=== PATIENT | male | born 1940 | race Caucasian/White ===

== ENCOUNTER 2019-01-20 12:30 | Inpatient (IN) | payer OTHER ==
[~2019-01-20] VITALS: Ht 180.3 cm; Wt 85.7 kg
[~2019-01-20 12:30] MED LIST: ASPIR 8181 MG PO; COMBIVENT INH; DOXYCYCLINE 10100 MG PO; GLUCOTROL5 MG PO; METFORMIN HCL500 MG PO; PREDNISONE 10 M10 MG PO; SINGULAIR 10 MG10 M1 PO; SYMBICORT160 MCG/4. INH; VENTOLIN HFA 1818 GM INH; XALATAN2.5 ML OPHTHALMIC
[2019-01-20 15:12] LABS: BASOPHILS 0.9 % (0.0-2.0); EOSINOPHILS 3.7 % (0.0-3.0); HEMATOCRIT 39.6 % (42.0-52.0); HEMOGLOBIN 13.1 gm/dL (14.0-18.0); LYMPHOCYTES 20.2 % (24.0-44.0); MCHC 33.2 g/dL (28.0-37.0); MCV 90.4 fL (80.0-100.0); MONOCYTES 10.7 % (1.0-8.0); PLATELET COUNT 244 thou/uL (150-400); POLYS 64.5 % (36.0-66.0); RBC 4.37 mil/uL (4.50-6.00); WBC 7.7 thou/uL (4.0-11.0)
[2019-01-20 15:25] LABS: PROTIME 10.6 Seconds (9.3-11.4)
[2019-01-20 15:35] LABS: CALCIUM 9.8 mg/dL (8.5-10.1); CREATININE 1.1 mg/dL (0.7-1.3); POTASSIUM 4.8 mmol/L (3.5-5.1)
[2019-01-20 15:40] LABS: ALBUMIN 3.5 g/dL (3.4-5.0); TOTAL BILIRUBIN 0.4 mg/dL (<0.1-1.0); TOTAL PROTEIN 7.7 g/dL (6.4-8.2)
--- NOTE | 2019-01-20 15:43 | NUR ---
PT ARRIVED TO UNIT APPROX 1445 A DIRECT ADMIT FROM [facility]. PT WENT FOR CATH PROVEDURE TO DAY AT [facility] WHERE THEY FOUND THE PT NEEDED CABG. PT SENT HERE FOR CABG WHICH IS PROJECTED TO BE ON WEDNESDAY, THE . KATHIE ROBERTO AT PT BEDSIDE UPON ARRIVAL, ECHO CURRENTLY AT THE BEDSIDE THEN PT SCHEDULED TO GO FOR US AND XRAY AMONG OTHER PRE-OP TESTING. UNABLE TO DO ADMISSION AT THIS TIME. PLACED PT ON MEAT INSPECTOR AND IN PT GOWN. WILL RETURN TO COMPLETE ADMISSION WHEN PT RETURNS TO ROOM. PT IS ACCOMPANIED BY AND FAMILY WHO ARE CURRENTLY IN VISITOR WAITING ROOM WHILE PT HAS TESTING DONE. WILL UPDATE NEEDED AND WILL CONTINUE TO MONITOR.
[2019-01-20 15:55] VITALS: BP 135/71
[2019-01-20] MEDS ORDERED: BYSTOLIC 5 MG5 M1 PO (17:38)
--- NOTE | 2019-01-20 18:35 | 2DMMODE ---
[place] [address] 2 D/M-MODE ECHOCARDIOGRAM Name: MACARIO KINNEY Room #: 200-I ADM IN [facility].#: [id number] ������������� Admission: 01/20/19 ������������� Attend Phys: Ayden Torres MD Discharge: ��� ������������� ��� Date of : 42 Date of Service: 01/20/19 1834 �� Report #: [id number] �������� ��������������������������������������������[id number] THIS REPORT FOR: //name// APPROVED REPORT Study performed: 01/20/2019 14:53:03 EXAM: Comprehensive 2D, Doppler, and color-flow Echocardiogram Patient Location: Bedside Room #: 200 Status: routine BSA: 2.04 HR: 75 bpm Rhythm: NSR Other Information Study Quality: Fair/low parasternals/No apical window. Technically limited study due to COPD. Indications Pre-Op CABG. 2D Dimensions IVSd: 8.33 (7-11mm) LVOT Diam: 22.04 (18-24mm) LVDd: 54.06 mm PWd: 8.63 (7-11mm) LVDs: 46.06 (25-40mm) Aortic Root: 38.39 mm Aortic Valve AoV Peak [place].: 1.00 m/s AO Peak Gr.: 4.03 mmHg LVOT Max P.95 mmHg LVOT Max V: 0.70 m/s ANNAMARIE Vmax: 2.65 cm2 Mitral Valve E/A Ratio: 0.7 MV Decel. Time: 170.73 ms MV E Max [place].: 0.33 m/s MV A [place].: 0.46 m/s MV PHT: 49.51 ms Pulmonary Valve PV Peak [place].: 1.11 m/s PV Peak Gr.: 4.96 mmHg [facility] [place] [address] [place] [address] 2 D/M-MODE ECHOCARDIOGRAM Name: MACARIO KINNEY Room #: 200-I ADM IN [facility]#: [id number] ������������� Admission: 01/20/19 ������������� Attend Phys: Ayden Torres MD Discharge: ��� ������������� ��� Date of : 42 Date of Service: 01/20/19 1834 �� Report #: [id number] �������� ��������������������������������������������[id number] Tricuspid Valve TR Peak [place].: 2.79 m/s RAP Estimate: 10.00 mmHg TR Peak Gr.: 31.15 mmHg PA Pressure: 41.00 mmHg Left Ventricle The left ventricle is normal size. mild inferior wall hypokinesis There is normal left ventricular wall thickness. Left ventricular systolic function is mildly decreased. LVEF is 45-50%. This study is not technically sufficient to allow evaluation of the LV diastolic function. Right Ventricle The right ventricle is normal size. The right ventricular systolic function is normal. Atria The left atrium size is normal. The right atrium size is normal. Aortic Valve The Aortic valve is mildly sclerotic. No aortic regurgitation is present. There is no aortic valvular stenosis. Mitral Valve The mitral valve is normal in structure. Trace mitral regurgitation. No evidence of mitral valve stenosis. Tricuspid Valve The tricuspid valve is normal in structure. Mild to moderate tricuspid regurgitation. Estimated PAP is 40mmHg. Pulmonic Valve The pulmonary valve is normal in structure. There is no pulmonic valvular regurgitation. Great Vessels Aortic root is borderline dilated. Ascending aorta is not well visualized. IVC is dilated and collapses 50% with inspiration. Pericardium There is no pericardial effusion. <Conclusion> [facility] [address] [place] [address] 2 D/M-MODE ECHOCARDIOGRAM Name: MACARIO KINNEY Room #: 200-I ADM IN .R.#: [id number] ������������� Admission: 01/20/19 ������������� Attend Phys: Ayden Torres MD Discharge: ��� ������������� ��� Date of : 42 Date of Service: 01/20/191833 �� Report #: [id number] �������� ��������������������������������������������[id number] mild inferior wall hypokinesis LVEF is 45-50%. The Aortic valve is mildly sclerotic. Mild to moderate tricuspid regurgitation. Estimated PAP is 40mmHg ��������������������������������������������� <ELECTRONICALLY SIGNED> ���������������������������������������� By: Jordan Farley MD, [facility] ��������������������������������������������� 01/20/191833 33 33 Jordan Farley MD, FACC /INF
[2019-01-20 20:00] VITALS: BP 150/71
[2019-01-21] VITALS (24 sets, daily range): BP systolic 87–208; BP diastolic 43–93
[2019-01-21 05:06] LABS: HEMOGLOBIN 12.7 gm/dL (14.0-18.0); MCH 30.3 pg (26.0-34.0); MCHC 33.5 g/dL (28.0-37.0); MCV 90.5 fL (80.0-100.0); RBC 4.21 mil/uL (4.50-6.00); RDW 13.9 % (10.5-14.5); WBC 8.4 thou/uL (4.0-11.0)
[2019-01-21 05:23] LABS: CALCIUM 9.2 mg/dL (8.5-10.1); POTASSIUM 4.2 mmol/L (3.5-5.1)
--- NOTE | 2019-01-21 07:50 | NUR ---
ASSUME CARE 1900. PT/VITALS STABLE. TOLERATES ACTIVITY MODERATELY. NOTED WHEEZING WITH SOME LABORED BREATHING AT REST. DENIES ANY PAIN. COOPERATIVE MOST OFTEN. PT IS PLEASANT AND APPROPRIATE. ASSESSMENT CHARTED. PROGRESSING SLOWLY WITH POC. RIGHT RADIAL ACCESS CDI. PT NEEDS MORE ENCOURAGEMENT TO AGREE TO CABG PREP PROCEDURES. PT NEEDS MOREENCOURAGEMENT TOWARDS DOING THE CABG AND NEEDS MORE EDUCATION ON THE PROCEDUR. WILL CONTINUE TO MONITOR AND FOLLOW WITH POC.
[2019-01-21 09:22] LABS: BE(vivo) -4.8 mmol/L (-2 to +3); HCO3 23.7 mmol/L (22.0-26.0); PCO2 58.2 mmHg (35.0-45.0); PO2 88.5 mmHg (80.0-100.0); pH 7.227 (7.360-7.450); sO2 94.9 % (92.0-98.0)
[2019-01-21 10:20] LABS: URINE BILIRUBIN NEGATIVE (Negative); URINE BLOOD 3+ (Negative); URINE CLARITY SL CLOUDY; URINE COLOR YELLOW; URINE GLUCOSE-RANDOM* NEGATIVE (Negative); URINE KETONES NEGATIVE (Negative); URINE PROTEIN (DIPSTICK) 2+ (Negative); URINE SPECIFIC GRAVITY 1.015 (1.005-1.035); URINE UROBILINOGEN 0.2 E.U./dl (0.2-1.0)
[2019-01-21 10:25] LABS: URINE LEUKOCYTES-REFLEX 3+ (Negative); URINE NITRITE-REFLEX POSITIVE (Negative)
--- NOTE | 2019-01-21 10:39 | NUR ---
ASSUME CARE AT SHIFT CHANGE, PATIENT IS DROWSY AND RESPONDING TO PAIN STEMULI AND BREATHING SHALLOW AT 28-30/MIN. DR DUFFY NOTIFIED. PIPAP PLACED BY RT, ABG DRAWN AND BERTRAND PLACED. AND WILL CONTINUE TO MONITOR.
[2019-01-21 10:41] LABS: BACTERIA-REFLEX 1-9 Few /HPF (None Seen); CASTS None Seen /LPF (None Seen); CRYSTALS None Seen /LPF (None Seen); SQUAMOUS 0-3 Few /LPF (0-3); URINE RBC >20 Many /HPF (0-2); URINE WBC-REFLEX >25 Many /HPF (0-5)
[2019-01-21 10:56] LABS: BE(vivo) -2.2 mmol/L (-2 to +3); HCO3 24.7 mmol/L (22.0-26.0); PCO2 50.6 mmHg (35.0-45.0); PO2 159.4 mmHg (80.0-100.0); pH 7.306 (7.360-7.450); sO2 98.9 % (92.0-98.0)
--- NOTE | 2019-01-21 11:03 | EKG ---
[place] [address] [facility] [place] [address] ELECTROCARDIOGRAM REPORT Name: MACARIO KINNEY Room #: 200-I ADM IN M.R.#: [id number] ������������������ Admission: 01/20/19 ������������������ Attend Phys: Ayden Torres MD Discharge: ������������������ Date of : 42 Report #: [id number] ����������������������������������������������������������������� [id number] THIS REPORT FOR: //name// [facility] Test Date: 2019-01-21 Test Time: 08:59:25 Pat Name: MACARIO KINNEY Department: Room: 200 I Gender: M Lien Searcher: FAUSTO : 1940 Requested By: Max Salter Order Number: [id number] MD: Carter Cristina Measurements Intervals [place] Rate: 103 P: 69 CT: 143 QRS: 52 QRSD: 87 T: 84 QT: 332 QTc: 435 Interpretive Statements Sinus tachycardia Ventricular premature complex Nonspecific ST segment abnormality No previous ECG available for comparison Electronically Signed On 01-21-2019 11:03:29 CDT by Carter Cristina [email or web address] ��������������������������������������������� <ELECTRONICALLY SIGNED> ���������������������������������������� By: Carter Cristina MD, [facility] ��������������������������������������������� 01/21/19 1103 [id number] Carter Cristina MD, FACC /EPI
[2019-01-21 12:08] LABS: GLYCOHEMOGLOBIN (HGB A1C) 6.9 % (4.8-5.6)
--- NOTE | 2019-01-21 19:53 | NUR ---
1125-RECEIVED PT FRO CCU VIA BED.PT ARRIVED ON BIPAP.--VW 1215-PT WOULD NOT KEEP BIPAP MASK ON,PULLING CONNECTIONS APART.WRIST RESTRAINTS APPLIED. & SON IN,UPDATED ON POC.--VW 183- UPDATED EARLIER.PLAVIX CRUSHED,PLACED IN SM AMT OF APPLESAUCE & BIPAP REMOVED FOR FEW MINUTES ONLY.SAT PT UPRIGHT,SWALLOWED W/O PROBLEM & BIPAP PLACED BACK ON.BRIDGE OF NOSE & LT ORBITAL AREA REDDENED & EXCORIATED-MEPILEX DRSG APLIED. UPDATED.LOTS OF SUPPORT TO .--VW 1930-CARE TURNED OVER TO ONCOMING RN.--VW
[2019-01-21 21:53] LABS: BE(vivo) -8.2 mmol/L (-2 to +3); HCO3 17.8 mmol/L (22.0-26.0); PCO2 38.4 mmHg (35.0-45.0); PO2 102.9 mmHg (80.0-100.0); pH 7.285 (7.360-7.450); sO2 97.1 % (92.0-98.0)
[2019-01-22] VITALS (36 sets, daily range): BP systolic 89–153; BP diastolic 41–90
[2019-01-22 04:23] LABS: HEMATOCRIT 41.4 % (42.0-52.0); HEMOGLOBIN 13.6 gm/dL (14.0-18.0); MCH 29.9 pg (26.0-34.0); MCHC 32.9 g/dL (28.0-37.0); RBC 4.55 mil/uL (4.50-6.00); WBC 7.6 thou/uL (4.0-11.0)
[2019-01-22 04:34] LABS: CALCIUM 9.1 mg/dL (8.5-10.1); CREATININE 1.3 mg/dL (0.7-1.3)
[2019-01-22 04:37] LABS: POTASSIUM 5.4 mmol/L (3.5-5.1)
[2019-01-22 05:25] LABS: BE(vivo) -4.1 mmol/L (-2 to +3); HCO3 20.5 mmol/L (22.0-26.0); PCO2 36.4 mmHg (35.0-45.0); PO2 81.2 mmHg (80.0-100.0); pH 7.369 (7.360-7.450); sO2 95.8 % (92.0-98.0)
--- NOTE | 2019-01-22 05:32 | NUR ---
AOX1, CONFUSED. FOLLOW SIMPLE COMMANDS. AFEBRILE, VSS. ON BIPAP DURING THE NIGHT. CURRENTLY ON 2L NC. NO APPARENT DISTRESS. MEDICATED FOR PAIN WITH APPLESAUCE. MINIMAL URINE OUTPUT. SLOWLY PROGRESSING TOWARDS GOALS. WILL CONTINUE TO MONITOR.
--- NOTE | 2019-01-22 16:35 | HC ---
[facility] [place] [address] CONSULTATION Name: MACARIO KINNEY Room #: 246-P [facility] IN M.R.#: [id number] Admission: 01/20/19 ������������������ Attend Phys: Ayden Torres MD Discharge: ������������������ Date of : 42 Report #: [id number] THIS REPORT FOR: //name// CC: DUSTIN Torres DATE OF SERVICE: 01/20/2019 CARDIOLOGY CONSULTATION HISTORY OF PRESENT ILLNESS: The patient is a 78-year-old white male who was admitted to [facility] for consideration of coronary artery bypass surgery. The patient has a previous history of heavy smoking, but quit many years ago. He does have a history of COPD and uses a bronchodilator. He does become short of breath when he exerts himself. He has had no previous cardiac evaluation or history of cardiac disease. Recently, however, he notes with any exertion he develops heaviness in his chest. There is no radiation of the pain. He has had no bleeding. He had no palpitations, syncope or edema. His primary care physician ordered a nuclear stress test at [facility] using Lexiscan in December. This suggested a previous inferior infarction. I saw him in the Cardiology Clinic and because of his history of crescendo angina and abnormal nuclear stress test, I recommended cardiac catheterization. PAST MEDICAL HISTORY: Otherwise significant for hernia repair, hip surgery, knee replacement. He has a history of kidney stones and recently had a ureteral stent placed. He has had previous esophageal dilatation. CURRENT MEDICATIONS: Include Ventolin inhaler, aspirin every day, Symbicort, glipizide, DuoNeb treatments, eyedrops, metformin, Singulair, prednisone as needed. ALLERGIES: He has no known drug allergies. FAMILY HISTORY: He has a sister with diabetes. SOCIAL HISTORY: He is . He and his live in [place], [place]. He is retired, quit smoking years ago. No alcohol abuse. REVIEW OF SYSTEMS: He has had no history of stroke, peptic ulcer disease, liver disease, kidney disease, cancer, psychiatric illness, chronic skin condition. PHYSICAL EXAMINATION: GENERAL: Revealed an elderly male. VITAL SIGNS: Blood pressure 110/60, pulse is 80. HEENT: Mucous members moist. [facility] [address] [place] [address] CONSULTATION Name: MACARIO KINNEY Room #: 246-P [facility] IN ..#: [id number] Admission: 01/20/19 ������������������ Attend Phys: Ayden Torres MD Discharge: ������������������ Date of : 42 Report #: [id number] NECK: Veins do not appear distended. No carotid bruit. CHEST: Reveals distant breath sounds. CARDIOVASCULAR: Regular rate and rhythm. ABDOMEN: Soft. EXTREMITIES: Had no edema. SKIN: Cool and dry. NEUROLOGIC: Nonfocal. His ECG showed sinus rhythm, nonspecific ST and T-wave changes. LABORATORY DATA: Sodium 136, glucose 136, creatinine 1.1. Liver function studies were normal. Cholesterol 154, triglycerides 68, HDL 44, LDL 97. White blood cell count 11.1, hemoglobin 13.7. IMPRESSION AND RECOMMENDATIONS: 1. Crescendo angina. The patient underwent an outpatient cardiac catheterization at [facility] today that showed severe 3-vessel coronary artery disease and normal left ventricular function. I recommended consideration of coronary artery bypass surgery. 2. Chronic obstructive pulmonary disease. I would consider preoperative assessment by the Pulmonary service. 3. History of kidney stone. The patient had a recent ureteral stent placed. 4. Previous history of esophageal dilatation. 5. Previous tobacco abuse. ��������������������������������������������� <ELECTRONICALLY SIGNED> ���������������������������������������� By: Jordan Farley MD, FACC ��������������������������������������������� 01/22/19 1635 1056 0251 Jordan Farley MD, FACC /nt
--- NOTE | 2019-01-22 19:19 | NUR ---
PT ALERT AND ORIENTED TIMES THREE WITH PERIODS OF CONFUSION. VSS, 96%2L SR ON TELE, BERTRAND TO DD. C/O BACK PAIN PRN PAIN MEDIACTIONS GIVEN WITH SOME RELEIF. PT TOLERATES MEDS AND FULL LIQUID DIET THIS SHIFT. PT FAMILY AT BEDSIDE FOR MOST OF THE SHIFT. WILL CONTINUE TO MONITOR.
[2019-01-23] VITALS (38 sets, daily range): BP systolic 111–179; BP diastolic 44–93
--- NOTE | 2019-01-23 04:50 | NUR ---
PT CURRENTLY RESTING IN BED. REMAINS ON RA SATS 93% PT AFEBRILE AND VSS. NPO SINCE MIDNIGHT FOR HEART CATH THIS AFTERNOON. PT REMAINS CONFUSED BUT FOLLOWING COMMANDS.
--- NOTE | 2019-01-23 07:54 | HC ---
[facility] [place] [address] CONSULTATION Name: MACARIO KINNEY Charley Room #: 246-P [facility] IN M.R.#: [id number] Admission: 01/20/19 ������������������ Attend Phys: Ayden Torres MD Discharge: ������������������ Date of : 41 Report #: [id number] THIS REPORT FOR: //name// CC: Rajendra Torres DATE OF SERVICE: 01/21/2019 We were asked to see the patient by Dr. Torres. The patient was transferred to this institution from [place] by Dr. Farley. HISTORY OF PRESENT ILLNESS: The patient has had a progressive onset of angina with exertion over the last 2 weeks. Cardiac catheterization at [place] showed severe 3-vessel coronary artery disease and the patient was transferred here with the thought that he would ultimately have bypass surgery. PAST MEDICAL HISTORY: Previous history is significant for chronic obstructive pulmonary disease. The patient also has had a history of kidney stones with ureteral stents and history of esophageal dilatation. MEDICATIONS: Current medications at home include Ventolin inhaler, aspirin, Symbicort inhaler, glipizide, DuoNebs treatments, eye drops, metformin, Singulair and prednisone. ALLERGIES: None known. FAMILY HISTORY: Sister has diabetes. SOCIAL HISTORY: The patient is . He and his live in [place], [place]. Former smoker. REVIEW OF SYSTEMS: Obtained from the chart as the patient is currently short of breath. PHYSICAL EXAMINATION: GENERAL: Today, the patient is lying in bed, tachypneic with accessory muscle use in breathing. VITAL SIGNS: Respiratory rate 20, temperature 36.2, pulse rate 89 and blood pressure 132/57. HEENT: No scleral icterus, no arcus. Pupils are round and equal. The patient is hyper-focused on breathing, but will answer questions. NECK: No mass, no bruit. CHEST: Diffuse inspiratory and expiratory wheezes with crackles. HEART: Rhythm is regular. No murmurs audible. ABDOMEN: Soft. No mass, no tenderness. EXTREMITIES: No clubbing. I see no cyanosis at this point. [facility] [address] [place] [address] CONSULTATION Name: NIRMALMACARIO Charley Room #: 246-P [facility] IN [facility].#: [id number] Admission: 01/20/19 ������������������ Attend Phys: Ayden Torres MD Discharge: ������������������ Date of : 41 Report #: [id number] pulses 1+ bilaterally. No obvious saphenous vein problems. MUSCULOSKELETAL: No obvious bone or joint dissymmetry or deformity. NEUROLOGIC: The patient is hyper-focused on breathing, but there are no obvious motor or sensory deficits. ASSESSMENT AND PLAN: The patient has important 3-vessel coronary artery disease and at least by virtue of the medical history, he has diabetes mellitus. As such, typically, the recommendation would be for coronary artery bypass surgery. Unfortunately, this patient has severe chronic obstructive pulmonary disease. Pulmonary function tests that we obtained yesterday show an FEV1 of 25% predicted, with a raw value of 0.75. This is very marginal for surgery in the sense that there is an increased risk of perioperative pulmonary dysfunction and the better part of valor, if the lesions are anatomically reasonable, would be to improve the patient's pulmonary status and consider stent placement for treatment of the coronary artery disease. I have discussed all of this with Dr. Farley. At the moment, the patient is being readied for transfer to the Intensive Care Unit and will be seen by Dr. Holley of the Pulmonary group. Thank you for the consult. ��������������������������������������������� <ELECTRONICALLY SIGNED> ���������������������������������������� By: Rajendra Lucero MD ��������������������������������������������� 01/23/19 0754 0943 2350 Rajendra Lucero MD /nt
--- NOTE | 2019-01-23 17:03 | NUR ---
PT ADMITTED RELATED TO CABG, ANGINA. CM REVIEWED CHART AND SPOKE WITH CARE TEAM. CM MET WITH PT AT BEDSIDE THIS DAY. PT IS A&O X4. CM ROLE INTRODUCED. TP INDICATED HE LIVES IN A HOUSE WITH HIS SPOUSE WITH 2 STEPS TO ENTER AND 4 STEPS INSIDE. PT INDICATED HE HAD BEEN INDEPENDNET WITH GAIT AND ADLS REPAIRING CALIBRATOR. PT INDICATED NO DME OR HH HX. PT INDICATED HE PLANS TO DISCHARGE HOME ONCE MEDICALLY STABLE. PT HAD STENT PLACED THIS DAY. CM TO FOLLOW INDICATED WITH DC PLANNING.
--- NOTE | 2019-01-23 17:26 | CATHLAB ---
[facility] [address] [place] [address] INVASIVE PROCEDURE REPORT Name: KINNEYMACARIO Charley Room #: 246-P [facility] IN ..#: [id number] ������������� Admission: 01/20/19 ������������� Attend Phys: Ayden Torres MD Discharge: ��� ������������� ��� Date of : 42 Date of Service: 01/23/19 1726 �� Report #: [id number] �������� ��������������������������������������������[id number] THIS REPORT FOR: //name// APPROVED REPORT Study performed: 01/23/2019 15:25:33 Patient Details Patient Status: In-Patient Room #: The patient is a 78 year-old male Event Personnel Jordan Farley Art Gallery Director, Lindsey Johnson RN RN, Chacorta Jefferson RN RN, Mandy Horner, Lydia Rowell Monitor Procedures Performed Art Access - R radial artery Coronary Angiography Only [id number] CORANG ELIEL Place w/wo Plasty Single RCA [id number] ELIEL Place w/wo Plasty Single LAD [id number] Hemostasis with Hemoband Indication Dyspnea, Chest pain Risk Factors Chronic Lung Disease, Coronary Artery Disease, Diabetes Admission/Lab Medications/Medications given during procedure Heparin Low Molecular Weight Procedure Narrative The patient was brought electively to the Cardiac Catheterization Laboratory and was prepped and draped in a sterile manner. The Right Wrist^ was infiltrated with 1% Lidocaine subcutaneous anesthesia. A CATH SHEATH PINNACLE 7FR 65CM #[id number] sheath was inserted into the Right Radial Artery^. Coronary angiography was performed using coronary diagnostic catheters. The right coronary system was accessed and visualized with a LAUNCHER 6FR JR 4 SH #[id number] catheter. The left coronary system was accessed and visualized with a VISTA 6FR XB LAD 3.5 #[id number] catheter. Closure device was deployed with a 6 Fr vascband. The patient tolerated the procedure well and there were no complications associated with the procedure. There was no hematoma. Fluoro Time: 11.05 minutes [facility] [place] [address] INVASIVE PROCEDURE REPORT Name: MACARIO KINNEY Room #: 246-P [facility]#: [id number] ������������� Admission: 01/20/19 ������������� Attend Phys: Ayden Torres MD Discharge: ��� ������������� ��� Date of : 42 Date of Service: 01/23/19 1726 �� Report #: [id number] �������� ��������������������������������������������[id number] Dose: DAP 89135.00 cGycm2 1459 mGy Contrast Type and Amount: Omnipaque 100 ml Coronary Angiography The patient's coronary anatomy is right dominant. Diagnostic Cath Left Main 0% stenosis LAD 90% stenosis noted before 2nd diagonal branch, and 90% stenosis distal to second diagonal branch OM2 70% mid stenosis Right Coronary 90% proximal stenosis Left Ventriculography Left Ventriculography was not performed. Hemodynamics The aortic pressure is 97/67 mmHg with a mean of 83 mmHg. PCI Technique Lesion Anticoagulation was achieved with lovenox sq. Patient was preloaded with Plavix. Percutaneous coronary intervention was performed on the proximal right coronary artery. The lesion stenosis prior to intervention was 90% with HEAVENLY 3 flow. A LAUNCHER 6FR JR 4 SH #[id number] Guide Catheter was used to engage the rca ostium. A BMW Wire .014 X 190CM #[id number] Interventional Guidewire was used to cross the lesion. BALLOON DILATION A Balloon catheter Euphora RX 2.5 x 10 #[id number] was inserted and inflated up to 14.00atm for 21seconds. Repeat angiography revealed the following post-dilatation results: 60% stenosis. STENT DEPLOYMENT A drug-eluting stent RESOLUTE WINTER RX 2.75 X 22 #[id number] was inserted and inflated up to 14.00atm for 17seconds. Repeat angiography revealed the following post-stent deployment results: 0% stenosis. Additional Inflation: 17.00atm for 15seconds. Final angiography reveals 0 % stenosis with HEAVENLY 3 flow. PCI Technique Lesion 2 Percutaneous Coronary Intervention was performed on the mid left anterior descending artery segment. Patient was preloaded with Plavix. Percutaneous coronary intervention was performed on the mid left anterior descending artery segment. The lesion stenosis prior to [address] [address] INVASIVE PROCEDURE REPORT Name: MACARIO KINNEY Room #: 246-P [facility] IN [facility]#: [id number] ������������� Admission: 01/20/19 ������������� Attend Phys: Ayden Torres MD Discharge: ��� ������������� ��� Date of : 42 Date of Service: 01/23/19 1726 �� Report #: [id number] �������� ��������������������������������������������[id number] intervention was 90% with HEAVENLY 3 flow. A VISTA 6FR XB LAD 3.5 #[id number] Guide Catheter was used to engage the lm ostium. A BMW Wire .014 X 190CM #[id number] Interventional Guidewire was used to cross the lesion. Balloon Dilation A Balloon catheter Euphora RX 2.5 x 10 #[id number] was inserted and inflated up to 8.00atm for 15seconds. Repeat angiography revealed the following post-dilatation results: 50% stenosis. Additional Inflation: 8.00atm for 10seconds. Stent Deployment A drug-eluting stent RESOLUTE WINTER RX 2.5 X 26 #[id number] was inserted and inflated up to 12.00atm for 15seconds. Repeat angiography revealed the following post-stent deployment results: 0% stenosis. Additional Inflation: 18.00atm for 12seconds. Final angiography reveals 0 % stenosis with HEAVENLY 3 flow. Conclusion 1. 90% stenosis noted in proximal rca and mid lad 2. successful placement of drug eluting stents in the rca and lad Recommendations Cardiac Rehabilitation Referral Aggressive Medical Therapy ��������������������������������������������� <ELECTRONICALLY SIGNED> ���������������������������������������� By: Jordan Farley MD, [facility] ��������������������������������������������� 01/23/191725 25 25 Jordan Farley MD, FACC /INF
--- NOTE | 2019-01-23 18:19 | NUR ---
PT IS POST 2 STENTS IN RIGHT WRIST. IN BILATERAL WRIST RESTRAINTS. PULLING AT THING POST OP CONFUSED. LUNGS ARE COARSE PRODUCTIVE COUGH WITH SECREATIONS THICK SPUTUM NOTED . SINUS RHYTHM ON THE MONITOR BERTRAND TO DD WITH BLOOD TINGE URINE. HALIDOL GIVEN DUE TO PT IS AGITATED. SCDS ON BILATERAL. RESTRAINTS RENEWED FOR PLAN OF CARE SINCE PT IS CONFUSED POST OPERATIVE. WILL CONTINUE TO ASSESS AND MONITOR
[2019-01-24] VITALS (18 sets, daily range): BP systolic 108–171; BP diastolic 39–109
--- NOTE | 2019-01-24 05:11 | NUR ---
PT CURRENTLY RESTING IN BED. SR ON MONITOR. PT AFEBRILE. PT CONTINUES ON 2L NC. PT TR BAND FOLLOW HEART CATH HAS BEEN REMOVED DURING SHIFT AND REPLACED WITH A BAND-AID, REMAINS CDI, SOFT, 2+PULSES TO RIGHT RADIAL. PT IS A&OX1, REMAINS IMPULSIVE. PT AM LABS DRAWN AND PENDING RESULT TO REVIEW.
[2019-01-24 05:29] LABS: HEMATOCRIT 35.9 % (42.0-52.0); MCH 30.1 pg (26.0-34.0); MCHC 33.5 g/dL (28.0-37.0); MCV 89.8 fL (80.0-100.0); RDW 13.9 % (10.5-14.5); WBC 8.9 thou/uL (4.0-11.0)
[2019-01-24 05:56] LABS: CREATININE 1.3 mg/dL (0.7-1.3); POTASSIUM 4.2 mmol/L (3.5-5.1); TROPONIN-I 0.08 ng/mL (<0.06)
--- NOTE | 2019-01-24 09:13 | EKG ---
[address] [place] [employer] [place] [address] ELECTROCARDIOGRAM REPORT Name: MACARIO KINNEY Room #: 246-P [facility] IN M.R.#: [id number] ������������������ Admission: 01/20/19 ������������������ Attend Phys: Ayden Torres MD Discharge: ������������������ Date of : 42 Report #: [id number] ����������������������������������������������������������������� [id number] THIS REPORT FOR: //name// [facility] Test Date: 2019-01-23 Test Time: 17:09:30 Pat Name: MACARIO KINNEY Department: Room: 246 P Gender: M Accounting Systems Manager: jlambertz : 1940 Requested By: Jordan Farley Order Number: [id number] MD: Carter Cristina Measurements Intervals [place] Rate: 91 P: 64 AL: 123 QRS: -51 QRSD: 128 T: 89 QT: 427 QTc: 526 Interpretive Statements Sinus rhythm Left bundle branch block Compared to ECG 01/21/2019 08:59:25 Left bundle-branch block now present Sinus tachycardia no longer present Ventricular premature complex(es) no longer present Electronically Signed On 01-24-2019 9:12:59 CDT by Carter Cristina [email or web address] ��������������������������������������������� <ELECTRONICALLY SIGNED> ���������������������������������������� By: Carter Cristina MD, FACC ��������������������������������������������� 01/24/19 0912 1709 1709 Carter Cristina MD, [facility] /EPI
--- NOTE | 2019-01-24 09:16 | EKG ---
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: Azul VILLARREAL : 1940 Requested By: Jordan Farley Order Number: [id number] MD: Carter Cristina Measurements Intervals [place] Rate: 80 P: 63 MS: 123 QRS: 47 QRSD: 90 T: 61 QT: 385 QTc: 445 Interpretive Statements Sinus rhythm Nonspecific ST segment abnormality Compared to ECG 01/21/2019 08:59:25 Left bundle-branch block no longer present Electronically Signed On 01-24-2019 9:16:24 CDT by Carter Cristina [email or web address] ��������������������������������������������� <ELECTRONICALLY SIGNED> ���������������������������������������� By: Carter Cristina MD, [facility] ��������������������������������������������� 01/24/19915 1 1 Carter Cristina MD, [facility] /EPI
--- NOTE | 2019-01-24 10:26 | NUR ---
PT IS SITING UP IN THE CHAIR THIS AM. DR. SANCHES SEEN PT THIS AM. PT WAS IN RESTRAINTS WANTS TO COOPERATE SO HE CAN GO HOME WITH HIS HE LIVES WITH. PHYSICAL THERAPY WORKED WITH PT AND HE WALKED AROUND ON THE UNIT WITH WALKER AND GAIT BELT. STEADY WITH ASSISTANCE AND HELP. GETING BREATHING TREATMENTS PER RESPIRTORY. DEMONSTRATES USE OF CALL LIGHT WITH NURSE. VERBALIZES UNDERSTANDING OF CALL LIGHT FOR ASSISTANCE PRIOR TO GETING UP . FALL SOCKS ON. CHAIR ALARM IS ON PT AT THIS TIME.
--- NOTE | 2019-01-24 13:14 | NUR ---
PT PLACED BACK TO BED DR. ALVARENGA CALLED PT IS AGRESSIVE AND AGGITATED WITH STAFF HE WANTS TO LEAVE NOW. NURSING STAFF PLACED BACK TO BED SAFELY AND REAPPLYIED RESTRAINTS. MEDICATION ZYPREXIA GIVEN IM SHOT.PT IS PULLING AT HIS BERTRAND CATHETER. PULLING AT HIS IV AT THIS TIME. BED ALERT ON FOR PTS SAFETY AT THIS TIME. AND PT BACK TO BED SAFELY WITH STAFF ASSISTING.
--- NOTE | 2019-01-24 15:32 | NUR ---
PT SAW PT THIS DAY AND INDICATED THAT ADDITIONAL VISITS ARE NEEDED TO DETERMINE DISCHARGE DISPOSITION. PULM INDICATED THAT PT ISN'T STABLE FOR DC AT THIS TIME. CM CALLED AND SPOKE WITH PT'S SPOUSE AND SHE INDIATED THAT SHE WUOLD PREFER THE PT RETURN HOME WITH HOME HEALTH ONCE MEDICALLY STABLE. 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 SHE INDICATED HE HAD HH IN THE PAST BUT COULDN'T RECALL PROVIDER. PT IS TRANSFERING TO THIS AFTERNOON ROOM 216. HOPE IS THAT PT WILL BE MEDICALLY STABLE TO DC HOME WITH HOME HEALTH TOMORROW. CM TO FOLLOW INDICATED WITH DC PLANNING.
--- NOTE | 2019-01-24 15:40 | NUR ---
PT TAKEN TO ROOM 216 OUT OF ICU FOR DEL[address]UM. DR. ALVARENGA ORDERED TRANSFER ORDERS ON PT THIS AM. ROOM AVAILABLE REPORT GIVEN TO ALLAN RN TO ASSUME CARE OF PT. PT IS MUCH OVER STIMULATED IN THE INTENSIVE CARE UNIT. VS STABLE. RESTRAINTS BILAERAL WRIST X2. MEDICATIONS ON MAR FOR AGGITATION IF NEEDED FOR PT. REORIENTATION TO PT IS NECESSARY. WENT HOME TO REST IS EXHAUSTED FROM PT. SR ON THE MONITOR. BERTRAND TO DD WITH BLOOD URINE NOTED. SKIN TEARS TO ARMS BILATERAL WITH KERLIX WRAP. DR. BRADY AND DR. ALVARENGA FEELT PT WOULD DO BETTER OUT OF ICU WITH DELIRUM.
--- NOTE | 2019-01-24 16:56 | NUR ---
PATIENT ARRIVED FROM ICU AT 1540, ALERT AND ORIENTED X3. CASTILLO WREST RESTRAINTS IPLACE, SR ON THE MONITOR, AND VSS. MULTIPLE SKIN TEARS AND BRUISES BUE, REDRESSED AND PICTURES TAKEN, AND CASTILLO WREST RESTRAINTS REMOVED AND PATIENT IS COOPERTAVE AND FOLLOWS COMMANDS AND VERBALIZED UNDERSTANDING TO CALL FOR ASSISTANCE. BERTRAND INPLACE AND DRAINING DARK RED URINE. AND WILL CONTINUE WITH POC.
[2019-01-25 00:30] VITALS: BP 122/55
--- NOTE | 2019-01-25 04:53 | NUR ---
PT TRANSFER FROM ICU . AO X3. DENIES PAIN. BERTRAND CHANGED. BLOOD TINGED URINE. BRUISE ON BOTH ARMS. WILL CONTINUE TO FOLLOW POC
[2019-01-25 05:04] VITALS: BP 136/53
[2019-01-25 07:30] VITALS: BP 134/67
--- NOTE | 2019-01-25 10:28 | NUR ---
WOUND CARE CONSULT; A STABLE SKIN TEAR TO THE RIGHT WRIST AND UNSTABLE SKIN TEARS TO THE LEFT ARMIDENTIFIED. FRAGILE PRESISONE SKIN NOTED, WRAPPED WITH KERLIX. I SEALED ALL THE SKIN TEARS WITH MARATHON AFTER APPROXIMATING THE WOUND MARGINS. RECOMMENDATION; 1-OPTIFOAM BILATERALLY (NOT BOARDERED) 2-SECURE WITH TUBIGRIPS, WEAR AT ALL TIMES DISCUSSED WITH STAFF
[2019-01-25 12:04] VITALS: BP 164/64
--- NOTE | 2019-01-25 16:20 | NUR ---
Spoke with patient and by phone. reviewed patients modified diet and therapy eval. believes she can accondate at home and reports patient wants to return home. She is unsure of HH agency. Left list of HH in room as well as post acute care.
[2019-01-25 16:21] VITALS: BP 163/88
--- NOTE | 2019-01-25 16:34 | NUR ---
ASSESSMENTS CHARTED - MEDS PER MAR - PT BLOOD SUAGAAR 479 AT [facility] - GIVEN SSI AND DR DUFFY MESSAGED RESULT. YU DIET AND FLUIDS. NO CO'S OF PAIN OR NAUSEA. PT ROOM AIR SAT 97% O2 REMOVED. AMBULATED IN THE [place] WITH PHYS THERAPY. PT HAD VIDEO SWALLOW COMPLETED TODAY AND PT MAY NOW HAVE NECTAR THICK LIQUIDS - MEALS TO STAY PURREED. NO CO'S AT THE PRESENT TIME.
--- NOTE | 2019-01-25 17:34 | NUR ---
BLOOD SUGAR 411 - MESSAGED DR DUFFY PER PROTOCOL - GAVE 12 UNITS PER SLIDING SCALE.
[2019-01-25 19:46] VITALS: BP 168/71
[2019-01-26 04:24] VITALS: BP 147/75
[2019-01-26 04:34] LABS: HEMATOCRIT 34.7 % (42.0-52.0); HEMOGLOBIN 11.5 gm/dL (14.0-18.0); MCH 29.8 pg (26.0-34.0); MCHC 33.1 g/dL (28.0-37.0); MCV 89.9 fL (80.0-100.0); RBC 3.86 mil/uL (4.50-6.00); RDW 13.8 % (10.5-14.5); WBC 13.3 thou/uL (4.0-11.0)
[2019-01-26 04:39] LABS: CALCIUM 9.4 mg/dL (8.5-10.1); CREATININE 1.4 mg/dL (0.7-1.3); POTASSIUM 3.7 mmol/L (3.5-5.1)
--- NOTE | 2019-01-26 08:13 | NUR ---
ASSESSMENTS CHARTED. ALERT TIMES 2. URINATING WITH BLOOD TINGED OUTPUT. UP WITH WALKER. WOUNDS ON BILATERAL ARMS DRESSED. PATIENT ON NECTUR THICK LIQUIDS AND PUREED FOODS.
[2019-01-26 08:44] VITALS: BP 132/67
[2019-01-26 12:05] VITALS: BP 138/78
--- NOTE | 2019-01-26 14:22 | NUR ---
Followup visit made with the pt and his at bedside to discuss dc needs. HH/snf list left at bedside yesterday. Pt and his spouse indicate that they prefer for the pt to dc home with hh. Possible dc tomorrow. Listing reviewed. Pt's spouse indicates that [facility] is [facility] first choice and [facility] the 2nd for HH services. Will contact both with referral to see which can accept his insurance plan and start of care this weekend. Will follow.
--- NOTE | 2019-01-26 15:30 | NUR ---
FAXED REFERRAL TO [facility] SPOKE WITH ANY IN ADM SHE RECEIVED REFERRAL BUT INSURANCE IS OUT OF NETWORK. FAXED REFERRAL TO [facility] SPOKE WITH KYLER SHE RECEIVED REFERRAL AND CAN ACCEPT PT AT DC BUT THEY DO NOT HAVE SPEECH THERAPY AVAILABLE WHERE PT LIVES. DCP TO FOLLOW.
[2019-01-26 16:50] VITALS: BP 151/71
--- NOTE | 2019-01-26 17:14 | NUR ---
ASSESSMENT CHARTED - MEDS PER MAR - NO CO'S OF PAIN OR NAUSEA. TOLD PURREE DIET AND NECTAR THICK LIQUIDS. PT SEEN BY SPEECH TO REINFORCESWALLOWING PRECAUTIONS- PT UP IN CHAIR FOR THE DAY - AMBUALTED IN THE HALLS X2 WITH THE USE OF A WALKER. STEADIER ON FEET WITH WALKER USE. PATIENT INCONTINENT X 2 THIS AM - BED AND IN THE CHAIR - UP TO THE BATHROOM OR URINAL USE OTHERWISE. URINE REMAINS DARK BLOOD TINGED - NO CO'S OF DIFFICULTY VOIDING. INTO VISIT. - NO CO'S AT THE PRESENT TIME.
[2019-01-26 20:05] VITALS: BP 158/64
[2019-01-27] VITALS (9 sets, daily range): BP systolic 102–143; BP diastolic 58–79
--- NOTE | 2019-01-27 02:59 | NUR ---
ASSESSMENT DOCUMENTED.PT BEEN RESTING IN NO ACUTE DISTRESS.A/O WITH INTERMITTENT CONFUSION AND FORGETFULNESS.VSS.DENIES CHEST PAIN OR ANY CONCERNS.RA W/O RESP DISTRESS.PT ANTICIPATING DISCHARGE TODAY TO HOME.WILL CONT TO MONITOR PER POC.
[2019-01-27 05:20] LABS: HEMOGLOBIN 10.9 gm/dL (14.0-18.0); MCH 30.2 pg (26.0-34.0); MCHC 33.9 g/dL (28.0-37.0); MCV 89.1 fL (80.0-100.0); RBC 3.6 mil/uL (4.50-6.00); RDW 13.9 % (10.5-14.5); WBC 9.9 thou/uL (4.0-11.0)
[2019-01-27 05:33] LABS: CALCIUM 9.1 mg/dL (8.5-10.1); CREATININE 1.1 mg/dL (0.7-1.3); POTASSIUM 4.1 mmol/L (3.5-5.1)
--- NOTE | 2019-01-27 09:35 | NUR ---
PT UP IN CHAIR EATING BREAKFAST THIS AM. WILL CONTINUETO ASSSESS.
--- NOTE | 2019-01-27 11:05 | NUR ---
WOUND CARE FOLLOW UP; THIS PATIENTS SKIN TEARS ARE CLINICALLY BETTER TODAY USING FOAM AG DRESSINGS SECURED WITH TUBIGRIPS. CONTINUE CURRENT DRESSING CHANGES M/W/F DISCUSSED WITH DAVON
[2019-01-27] MEDS ORDERED: CLOPIDOGREL75 MG PO (13:21)
[2019-01-27] MEDS ORDERED: LIPITOR40 MG PO (13:22)
[2019-01-27] MEDS ORDERED: LEVAQUIN 500 M500 M2 PO (13:23)
[2019-01-27] MEDS ORDERED: PREDNISONE 10 M10 MG PO (13:24)
--- NOTE | 2019-01-27 13:25 | NUR ---
Pt's here to take the pt home this afternoon. They are aware that the [facility] can not accept the pt's insurance for hh but [facility] can. They are agreeable. Dc inventory control planner to fax hh orders and confirm weekend soc. No other needs indicated at this time.
--- NOTE | 2019-01-27 14:39 | NUR ---
IV AND TELE DISOCNTINUED. PT DISACHAREGED TO HOME VIA PRIVATE VEHICLE.
--- NOTE | 2019-01-27 14:42 | NUR ---
PT DISCHARGING TODAY HOME WITH [facility] FAXED DC ORDERS/SUMMARY AND SPOKE WITH KYLER IN INTAKE AND SHE RECEIVED DC ORDER AND WILL START VISITS ON MONDAY 01/29 AND WILL NOTIFY PT TIME OF VISITS.
== END 2019-01-27 14:57 | disposition home health service (06) | DRG 246 ==
LOC: 2N 14:25 → ICU 14:25 → 2N 01-24 15:38
PROVIDERS: Internal Medicine Cardiovascular Disease; Pediatrics; Physician Assistant; ADMIT Hospitalist
DX: I25.118 Atherosclerotic heart disease of native coronary artery with other forms of angina pectoris (principal); J96.22 Acute and chronic respiratory failure with hypercapnia; I50.23 Acute on chronic systolic (congestive) heart failure; J96.21 Acute and chronic respiratory failure with hypoxia; J44.9 Chronic obstructive pulmonary disease, unspecified; I11.0 Hypertensive heart disease with heart failure; E78.5 Hyperlipidemia, unspecified; R41.0 Disorientation, unspecified; R31.9 Hematuria, unspecified; Z87.442 Personal history of urinary calculi; Z83.3 Family history of diabetes mellitus; Z87.891 Personal history of nicotine dependence; Z79.82 Long term (current) use of aspirin; Z79.899 Other long term (current) drug therapy
CPT/HCPCS: 10078; 10081